=== PATIENT | male | born 1980 | race African-American/Black ===

== ENCOUNTER 2018-10-26 17:20 | Emergency (ER) | payer OTHER ==
[2018-10-26] MEDS ORDERED: ACETAMINOPHEN 500 MG TAB ONE (17:44)
[2018-10-26] MEDS ORDERED: NA CHLORIDE 0.9% 2,000 ML ONE (17:44)
[2018-10-26] MEDS ORDERED: MIDAZOLAM HCL 2 MG/2 ML INJ ONE ×2 (17:44→18:42)
[2018-10-26 18:02] LABS: Absolute Lymphocytes (CBC) 0.3 K/uL (0.7-4.9); Basophils % 0.6 % (0-1.3); Hematocrit 28.3 % (39.6-49.0); Lymphocytes % 4.4 % (15.3-44.8); MPV 8.7 fL (7.6-11.3); RBC Red Blood Cell Count 3.29 M/uL (4.33-5.43)
[2018-10-26 18:07] LABS: Protime INR 1.34
--- NOTE | 2018-10-26 18:09 | RAD REPORT ---
EXAM DESCRIPTION: RAD - Chest Single View - 10/26/2018 6:03 pm CLINICAL HISTORY: DYSPNEA Chest pain. COMPARISON: Abdomen Pelvis W Contrast dated 08/29/2017No comparisons FINDINGS: Portable technique limits examination quality. Ill-defined opacities are present in the medial left lung base suspicious for pneumonia. The heart is normal in size. Sternotomy wires noted. Tracheostomy tube is present. IMPRESSION: Medial left lung base pneumonia.
[2018-10-26 18:18] LABS: Arterial Blood Carboxyhemoglob 1.4 % (0-1.5); Blood Gas Oxyhemoglobin 96.5 % (94-97); Blood O2 Saturation 98.7 % (92-98.5)
[2018-10-26 18:20] LABS: Anisocytosis 1+; Blood Morphology Comment NOTED (NOT SEEN); Platelet Estimate ADEQ; Urine White Blood Cell Casts OK
[2018-10-26 18:20] LABS: Urine Blood 2+ (NEG); Urine Glucose NEGATIVE (NEG); Urine Protein 3+ (NEG)
[2018-10-26 18:24] LABS: ALT/SGPT 92 U/L (12-78); AST/SGOT 112 U/L (15-37); Albumin 2.3 g/dL (3.4-5.0); Alkaline Phosphatase 358 U/L (45-117); BUN Blood Urea Nitrogen 70 mg/dL (7-18); Bicarbonate 20 mmol/L (21-32); Bilirubin Direct 0.4 mg/dL (0-0.2); Bilirubin Total 0.6 mg/dL (0.2-1.0); CKMB Creatine Kinase MB < 1.0 ng/mL (0.3-3.6); Creatine Phosphokinase 169 U/L (39-308); Glucose Level 176 mg/dL (74-106); Lipase 22 U/L (73-393); Potassium 4.8 mmol/L (3.5-5.1); Protein, Total 8.1 g/dL (6.4-8.2); Sodium Level 137 mmol/L (136-145); Troponin (Emerg Dept Use Only) < 0.02 ng/mL (0.0-0.045)
[2018-10-26] MEDS ORDERED: PIPER/TAZO/NS 3.375gm 3.375 GM/100 ML BAG ONE (18:27)
[2018-10-26] MEDS ORDERED: NA CHLORIDE 0.9% 250 ML ONE (18:27)
[2018-10-26] MEDS ORDERED: VANCOMYCIN 1 GM/VIAL ONE (18:27)
[2018-10-26 18:28] LABS: Urine Amorphous Sediment TRACE /HPF (NONE SEEN); Urine Bacteria 20-50 /HPF (NONE SEEN); Urine Culture Reflex Order REFLEXED; Urine RBC <5 /HPF (NONE SEEN)
--- NOTE | 2018-10-26 18:37 | ER ---
Nurse's Notes [facility] Name: Shlomo Laughlin Age: 37 yrs Sex: Male : 1980 Arrival Date: 10/26/2018 Time: 17:22 Bed 4 Private MD: Diagnosis: Pneumonia;Acute respiratory distress;Dehydration;Acute kidney failure Presentation: 10/26 17:22 Presenting complaint: EMS states: they were called out for respiratory distress or mg2 possible sepsis. he was diagnosed with pneumonia for one week now and on cefuroxime abx for 2 days now. tracheostomy tube is full of mucus secretions. trache is attached to a mech vent. he was saturating 84% on scene. BGL was 250 mg/dl. Transition of care: patient was received from another setting of care (long-term care facility), [facility]. Onset of symptoms was October 26, 2018. Risk Assessment: Do you want to hurt yourself or someone else? Patient reports no desire to harm self or others. Initial Sepsis Screen: Does the patient meet any 2 criteria? Temp <36.0*C (96.8*F)) or > 38.3*C (100.9*F). HR > 90 bpm. Yes Does the patient have a suspected source of infection? Yes: Productive cough/pneumonia. Care prior to arrival: None. 17:22 Method Of Arrival: EMS: [facility] mg2 17:22 Acuity: COREY 1 mg2 Historical: - Allergies: 17:32 No Known Allergies; mg2 - PMHx: 17:32 Atrial Fib; Diabetes - NIDDM; heartburn; pulmonary hypertension; Hypertension; heart mg2 transplant; Gout; convulsion; MRSA; Seizures; Pneumonia; - Immunization history:: Flu vaccine status is unknown. - Social history:: Smoking status: unknown. - Ebola Screening: : No symptoms or risks identified at this time. - Hospitalizations: : Presumably this hospital recently. - History obtained from: EMS. Screenin:15 Abuse screen: Denies threats or abuse. Denies injuries from another. Nutritional mg2 screening: No deficits noted. Tuberculosis screening: No symptoms or risk factors identified. Fall Risk Secondary diagnosis (15 points) seizures, impaired mobility, IV access (20 points). Gait- Normal/Bed Rest/Wheelchair (0 pts). Assessment: 18:47 General: Appears distressed, Behavior is unresponsive. sedated . Pain: Unable to use mg2 pain scale. Patient appears sedated. Neuro: Level of Consciousness is sedated. Cardiovascular: Clubbing of nail beds is absent Patient's skin is warm and dry. Respiratory: Airway via trache Respiratory effort is unlabored, Respiratory pattern is regular, symmetrical. GI: No signs and/or symptoms were reported involving the gastrointestinal system. : Urine is see urine dip. EENT: No signs and/or symptoms were reported regarding the EENT system. Derm: Skin left foot ulceration. Musculoskeletal: Circulation, motion, and sensation intact. Capillary refill < 3 seconds. 19:46 Respiratory: patient has tracheostomy tube attached to [facility] [place] vent, setting PEEP-5, mg2 RR-15, FI02 40 \T\, TV of 500 ml greenish copius secretions noted in the trache. fine crackles noted in the left lung li. 20:16 Reassessment: report called to PENNY Das of [facility]. mg2 20:59 Reassessment: RT came and decreased the FIO2 to 35% and patient has been saturating 100 mg2 %. Vital Signs: 17:29 BP 105 / 78; Pulse 135; Resp 24; Temp 101.9; Pulse Ox 95% on 40% FiO2 ETT vent; Weight mg2 72.57 kg; 18:52 BP 118 / 70; Pulse 118; Resp 16; Temp 99.3; Pulse Ox 100% on 40% FiO2 ETT vent; mg2 20:09 BP 101 / 68; Pulse 114; Resp 16; Pulse Ox 100% on 40% FiO2 ETT vent; mg2 21:01 BP 108 / 69; Pulse 109; Resp 16; Temp 98.1(A); Pulse Ox 100% on 35% FiO2 ETT vent; mg2 22:07 BP 106 / 69; Pulse 108; Resp 16; Temp 98.1(A); Pulse Ox 100% on 35% FiO2 ETT vent; mg2 17:29 estimated weight mg2 18:52 tracheostomy mg2 20:09 vi a tracheostomy mg2 21:01 via tracheostomy tube mg2 [place] Coma Score: 20:59 Eye Response: none(1). Verbal Response: none(1). Motor Response: none(1). Total: 3. mg2 21:05 Eye Response: to voice(3). Verbal Response: none(1). Motor Response: flexion mg2 (decorticate)(3). Total: 7. ED Course: 17:22 Patient arrived in ED. iw 17:27 Josh Roblero MD is Attending Physician. rn 17:29 Triage completed. mg2 17:32 Arm band placed on. mg2 17:59 EKG done, by process maintenance technician. reviewed by Josh Roblero MD. sm3 18:00 First set of blood cultures drawn by ED staff, Second set of blood cultures drawn ist mg2 set at 1745 and 2nd \T\ 1800. 18:04 Chest Single View XRAY In Process Unspecified. EDMS 18:14 Sergio Lowery, RN is Primary Nurse. mg2 18:25 called and connected Syeda DOCKERY the Heart Bee Tender for [facility] with Dr. Annika dunn for patient consultation. 18:30 transfer initiated with Eunice from the [facility] transfer center. eb 18:35 Assist provider with bone marrow aspiration. Accessed PICC line. using Clean \T\ dry. mg2 Dressing intact. Good blood return. Flushes easily. 18:49 Patient has correct armband on for positive identification. mg2 19:30 Urine collected: Holt catheter specimen, cloudy, Amount Returned: 150mL. mg2 20:03 Patient tolerated. mg2 22:08 Patient transferred, IV remains in place. mg2 Administered Medications: 17:46 Drug: Versed 2 mg Route: IVP; Site: left upper arm; jl7 19:58 Follow up: Response: No adverse reaction; RASS: Moderate sedation (-3) mg2 18:14 Drug: NS 0.9% 1000 ml Route: IV; Rate: 1000 ml; Site: PICC; mg2 19:59 Follow up: Response: No adverse reaction; IV Status: Completed infusion; IV Intake: mg2 1000ml 19:59 Follow up: Response: No adverse reaction; IV Status: Completed infusion; IV Intake: mg2 1000ml 18:14 Drug: Tylenol 1000 mg Route: PO; mg2 19:58 Follow up: Response: No adverse reaction; Temperature is decreased mg2 18:34 Drug: Zosyn 3.375 grams Route: IVPB; Infused Over: 60 mins; Site: PICC; mg2 19:58 Follow up: Response: No adverse reaction; IV Status: Completed infusion mg2 18:46 Drug: NS 0.9% (30 ml/kg) 30 ml/kg Route: IV; Rate: bolus; Site: PICC; mg2 20:00 Follow up: Response: No adverse reaction; IV Status: Completed infusion; IV Intake: mg2 1000ml 18:46 Drug: Dilaudid 1 mg Route: IVP; Site: PICC; mg2 19:58 Follow up: Response: No adverse reaction; RASS: Deep sedation (-4) mg2 19:35 Drug: vancoMYCIN 1 grams {Note: left arm.} Route: IVPB; Infused Over: 2 hrs; Site: mg2 Other; 19:58 Follow up: Response: No adverse reaction; IV Status: Completed infusion mg2 21:50 Drug: Versed 1 mg Route: IVP; Site: PICC; mg2 22:06 Follow up: Response: No adverse reaction mg2 Point of Care Testing: Blood Glucose: 18:15 Blood Glucose: 242 mg/dL; mg2 Ranges: Intake: 19:59 IV: 1000ml; Total: 1000ml. mg2 19:59 IV: 1000ml; Total: 2000ml. mg2 20:00 IV: 1000ml; Total: 3000ml. mg2 Outcome: 18:35 ER care complete, transfer ordered by . rn 22:08 Transferred by ground EMS to [facility], Transfer form mg2 completed. 22:08 Condition: stable 22:08 Instructed on the need for transfer, Demonstrated understanding of instructions. 22:17 Patient left the ED. mg2 Signatures: Dispatcher [employer] EDMS Mary Nash RN RN iw Nieto, Roman, MD MD rn Leal, Jahala, RN RN jl7 Ro Goodwin Michele, RN RN mg2 Phyllis Mcneill3 Corrections: (The following items were deleted from the chart) 18:37 17:22 Presenting complaint: EMS states: they were called out for respiratory tube or mg2 possible sepsis. he was diagnosed with pneumonia for one week now and on cefuroxime abx for 2 days now. tracheostomy tube is full of mucus secretions. [facility] he was saturating 84% on scene. BGL was 250 mg/dl. mg2 18:46 17:29 BP 105 / 78; Pulse 135bpm; Resp 24bpm; Pulse Ox 95% ET / Ventilator; Temp 101.9F; mg2 mg2 21:03 17:29 BP 105 / 78; Pulse 135bpm; Resp 24bpm; Pulse Ox 95% ET / Ventilator; Temp 101.9F; mg2 72.57 kg; estimated weight; mg2 21:03 18:52 BP 118 / 70; Pulse 118bpm; Resp 16bpm; Pulse Ox 100% ET / Ventilator; Temp 99.3F; mg2 tracheostomy; mg2 21:05 21:01 BP 108 / 69; Pulse 109bpm; Resp 16bpm; Pulse Ox 100% FiO2 35% vent; via mg2 tracheostomy tube; mg2
--- NOTE | 2018-10-26 18:38 | EDPHYS ---
Physician Documentation [facility] Name: Shlomo Laughlin Age: 37 yrs Sex: Male : 1980 Arrival Date: 10/26/2018 Time: 17:22 Bed 4 Private MD: ED Physician Josh Roblero HPI: 10/26 18:02 This 37 yrs old Black Male presents to ER via EMS with complaints of AMS, pneumonia. rn 18:02 The patient or guardian reports cough. Onset: The symptoms/episode began/occurred at an rn unknown time. Severity of symptoms: At their worst the symptoms were moderate, in the emergency department the symptoms are unchanged. Modifying factors: The symptoms are alleviated by nothing, the symptoms are aggravated by nothing. The patient has experienced a previous episode. The patient has been recently seen by a physician:. Per EMS, being treated for pneumonia with cefepime, got dose today, increased lethargy and worse cough, fever. 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 Has tracheostomy. EMS tried CPAP and didn't work, switched to vent and improved. . Historical: - Allergies: 17:32 No Known Allergies; mg2 - PMHx: 17:32 Atrial Fib; Diabetes - NIDDM; heartburn; pulmonary hypertension; Hypertension; heart mg2 transplant; Gout; convulsion; MRSA; Seizures; Pneumonia; - Immunization history:: Flu vaccine status is unknown. - Social history:: Smoking status: unknown. - Ebola Screening: : No symptoms or risks identified at this time. - Hospitalizations: : Presumably this hospital recently. - History obtained from: EMS. ROS: 18:02 Unable to obtain ROS due to patient is on ventilator, Patient at baseline only able to rn open eyes, nonverbal. Exam: 18:02 Constitutional: Thin male, on ventilator, contracted, opens eyes, nonverbal Head/Face: rn Normocephalic, atraumatic. ENT: dry MM Neck: tracheostomy in place with vent Cardiovascular: tachycardic, regular, no murmur Respiratory: + coarse bilateral breath sounds Abdomen/GI: soft, non-tender, + feeding tube with normal appearing stoma MS/ Extremity: Pulses equal, no cyanosis. Stiff 4 extremities. Neuro: Awake, opens eyes, contracted state without purposeful movement. Vital Signs: 17:29 BP 105 / 78; Pulse 135; Resp 24; Temp 101.9; Pulse Ox 95% on 40% FiO2 ETT vent; Weight mg2 72.57 kg; 18:52 BP 118 / 70; Pulse 118; Resp 16; Temp 99.3; Pulse Ox 100% on 40% FiO2 ETT vent; mg2 20:09 BP 101 / 68; Pulse 114; Resp 16; Pulse Ox 100% on 40% FiO2 ETT vent; mg2 21:01 BP 108 / 69; Pulse 109; Resp 16; Temp 98.1(A); Pulse Ox 100% on 35% FiO2 ETT vent; mg2 22:07 BP 106 / 69; Pulse 108; Resp 16; Temp 98.1(A); Pulse Ox 100% on 35% FiO2 ETT vent; mg2 17:29 estimated weight mg2 18:52 tracheostomy mg2 20:09 vi a tracheostomy mg2 21:01 via tracheostomy tube mg2 [place] Coma Score: 20:59 Eye Response: none(1). Verbal Response: none(1). Motor Response: none(1). Total: 3. mg2 21:05 Eye Response: to voice(3). Verbal Response: none(1). Motor Response: flexion mg2 (decorticate)(3). Total: 7. MDM: 17:29 Patient medically screened. rn 18:31 Differential Diagnosis: Pneumonia Other sepsis. Data reviewed: vital signs, nurses rn notes, lab test result(s), EKG, radiologic studies, plain films, and as a result, I will admit patient. Counseling: I had a detailed discussion with the patient and/or guardian regarding: the historical points, exam findings, and any diagnostic results supporting the discharge/admit diagnosis, lab results, radiology results, the need to transfer to another facility, for higher level of care. ED course: Spoke with SARKIS Landa from [facility], who took care of patient recently. States is heart transplant recipient, is supposed to be on vanc/cefepime, saw him at [facility]f today and noticed very dry, states baseline HR around 110 due to denervated heart after transplant, and is happy to accept patient back to [facility] for pneumonia in step down unit. . 10/26 17:33 Order name: Basic Metabolic Panel mg2 10/26 17:33 Order name: Blood Culture Adult (2) mg2 10/26 17:33 Order name: CBC with Diff mg2 10/26 17:33 Order name: Ckmb; Complete Time: 18:25 [facility] 10/[place] 17:33 Order name: CPK; Complete Time: 18:25 [facility] 10/26 17:33 Order name: Lactate; Complete Time: 18:25 [facility] 10/26 17:33 Order name: LFT's; Complete Time: 18:25 [facility] 10/26 17:33 Order name: Lipase; Complete Time: 18:25 [facility] 10/26 17:33 Order name: Procalcitonin [facility] 10/26 17:33 Order name: Protime (+inr); Complete Time: 18:08 [facility] 10/26 17:33 Order name: Ptt, Activated; Complete Time: 18:08 [facility] 10/26 17:33 Order name: Troponin (emerg Dept Use Only); Complete Time: 18:25 [facility] 10/26 17:33 Order name: Urine Microscopic Only [facility] 10/26 17:34 Order name: Basic Metabolic Panel; Complete Time: 18:25 [facility] 10/26 17:33 Order name: Chest Single View XRAY; Complete Time: 18:14 [facility] 10/26 17:34 Order name: Blood Culture [facility] 10/26 17:34 Order name: CBC with Automated Diff; Complete Time: 18:25 [facility] 10/26 17:34 Order name: Blood Culture Adult (2) 10/26 17:34 Order name: ABG; Complete Time: 18:25 10/26 18:08 Order name: CBC Smear Scan; Complete Time: 18:25 [facility] 10/26 18:18 Order name: Urine Dipstick--Ancillary (enter results); Complete Time: 18:25 10/26 18:30 Order name: Urine Culture [facility] 10/26 21:16 Order name: Lactate Sepsis 2 HR Follow-up [facility] 10/26 17:33 Order name: Accucheck; Complete Time: 18:14 [facility] 10/26 17:33 Order name: Cardiac monitoring; Complete Time: 18:15 [facility] 10/26 17:33 Order name: EKG - Nurse/Tech; Complete Time: 18:15 [facility] 10/26 17:33 Order name: IV Saline Lock - Large Bore; Complete Time: 18:15 [facility] 10/26 17:33 Order name: Labs collected and sent; Complete Time: 18:15 [facility] 10/26 17:33 Order name: O2 Per Protocol; Complete Time: 18:15 mg2 10/26 17:33 Order name: O2 Sat Monitoring; Complete Time: 18:15 mg2 10/26 17:33 Order name: Urine Dipstick-Ancillary (obtain specimen); Complete Time: 18:15 mg2 10/26 17:34 Order name: IV Start; Complete Time: 18:35 rn 10/26 17:34 Order name: Suction; Complete Time: 17:37 rn 10/26 18:00 Order name: EKG Electrocardiogram EDMS Administered Medications: 17:46 Drug: Versed 2 mg Route: IVP; Site: left upper arm; jl7 19:58 Follow up: Response: No adverse reaction; RASS: Moderate sedation (-3) mg2 18:14 Drug: NS 0.9% 1000 ml Route: IV; Rate: 1000 ml; Site: PICC; mg2 19:59 Follow up: Response: No adverse reaction; IV Status: Completed infusion; IV Intake: mg2 1000ml 19:59 Follow up: Response: No adverse reaction; IV Status: Completed infusion; IV Intake: mg2 1000ml 18:14 Drug: Tylenol 1000 mg Route: PO; mg2 19:58 Follow up: Response: No adverse reaction; Temperature is decreased mg2 18:34 Drug: Zosyn 3.375 grams Route: IVPB; Infused Over: 60 mins; Site: PICC; mg2 19:58 Follow up: Response: No adverse reaction; IV Status: Completed infusion mg2 18:46 Drug: NS 0.9% (30 ml/kg) 30 ml/kg Route: IV; Rate: bolus; Site: PICC; mg2 20:00 Follow up: Response: No adverse reaction; IV Status: Completed infusion; IV Intake: mg2 1000ml 18:46 Drug: Dilaudid 1 mg Route: IVP; Site: PICC; mg2 19:58 Follow up: Response: No adverse reaction; RASS: Deep sedation (-4) mg2 19:35 Drug: vancoMYCIN 1 grams {Note: left arm.} Route: IVPB; Infused Over: 2 hrs; Site: [address]; 19:58 Follow up: Response: No adverse reaction; IV Status: Completed infusion mg2 21:50 Drug: Versed 1 mg Route: IVP; Site: PICC; mg2 22:06 Follow up: Response: No adverse reaction mg2 Point of Care Testing: Blood Glucose: 18:15 Blood Glucose: 242 mg/dL; mg2 Ranges: Critical Glucose Levels:Adult <50 mg/dl or >400 mg/dl <40 mg/dl or >180 mg/dl Disposition: 10/26/18 18:35 Transfer ordered to [facility]. Diagnosis are Pneumonia, Acute respiratory distress, Dehydration, Acute kidney failure. - Reason for transfer: Higher level of care. - Accepting physician is SARKIS Landa. - Condition is Fair. - Problem is an ongoing problem. - Symptoms have improved. Critical care time excluding procedures: 18:31 Critical care time: Bedside Care: 25 minutes, Consultation: 5 minutes. Total time: 30 rn minutes Signatures: Dispatcher [employer] EDMS Josh Roblero MD MD rn Taylor Vicotria RN RN jl7 Sergio Lowery RN RN mg2 Corrections: (The following items were deleted from the chart) 17:41 17:35 BASIC METABOLIC PANEL+C.LAB.BRZ ordered. EDMS EDMS 17:41 17:35 Procalcitonin+C.LAB.BRZ ordered. EDMS EDMS 17:41 17:35 LACTATE+C.LAB.BRZ ordered. EDMS EDMS 17:58 17:35 Chest Single View+RAD.RAD.BRZ ordered. EDMS EDMS 18:01 17:35 CBC+H.LAB.BRZ ordered. EDMS EDMS 22:17 18:35 10/26/2018 18:35 Transfer ordered to [facility]. Diagnosis is Pneumonia; mg2 Acute respiratory distress; Dehydration; Acute kidney failure. Reason for transfer: Higher level of care. Accepting physician is SARKIS Landa. Condition is Fair. Problem is an ongoing problem. Symptoms have improved. rn
[2018-10-26] MEDS ORDERED: HYDROMORPHONE HCL 1 MG/ML INJ ONE (18:42)
--- NOTE | 2018-10-27 09:08 | EKG ---
Test Date: 2018-10-26 Test Time: 17:41:35 Garment Inspector: AAYSUH MEASUREMENT RESULTS: Intervals: Rate: 136 [place]: 120 QRSD: 122 QT: 312 QTc: 469 [place]: P: 78 [place]: 120 QRS: 259 T: 34 INTERPRETIVE STATEMENTS: Sinus tachycardia Right bundle branch block Abnormal ECG No previous ECG available for comparison Electronically Signed On 10-27-18 09:07:50 CDT by Vishnu Pickens
== END 2018-10-26 22:17 | disposition short-term general hospital (02) ==
LOC: ER 17:20
DX: J18.9 Pneumonia, unspecified organism (principal); E86.0 Dehydration; N17.9 Acute kidney failure, unspecified; I10 Essential (primary) hypertension; Z94.1 Heart transplant status; Z86.73 Personal history of transient ischemic attack (TIA), and cerebral infarction without residual deficits
CPT/HCPCS: 93005; 87040 ×2; 87088; 85025; 80048; 36415; 82550; 85610; 82962; 80076; 83605 ×2; 85730; 84484; 82553; 83690; 84145; 71045; 94002; 82805; 99291; J2250 ×2; J2543; J1170; J7030; 81003; 81015; 87077; 87086; 87186; 87205; 96365; 96368; 96375